=== PATIENT | female | born 1970 | race American Indian/Alaskan Native ===

== ENCOUNTER 2017-05-13 11:02 | Emergency (ER) | payer BC, OTHER ==
[2017-05-13 11:15] VITALS: BP 133/101
[2017-05-13] MEDS ORDERED: Sodium Chloride 0.9% 10 ML Syringe FLUSH PRN (11:26)
[2017-05-13] MEDS ORDERED: Sodium Chloride 0.9% 1,000 ML IV ONE ×2 (11:26→13:00)
[2017-05-13] MEDS ORDERED: Ondansetron 4 MG/2 ML SDV IV ONE (11:26)
[2017-05-13] MEDS ORDERED: diphenhydrAMINE 50 MG/ML SDV IVPUSH ONE (11:26)
--- NOTE | 2017-05-13 11:33 | EDM.PDOC ---
ED HPI GENERAL MEDICAL PROBLEM - General Chief Complaint: Gastrointestinal Problem Stated Complaint: [id number] FOOD POISONING Time Seen by Provider: 05/13/17 11:26 Source of Information: Reports: Patient History Limitations: Reports: No Limitations - History of Present Illness INITIAL COMMENTS - FREE TEXT/NARRATIVE: Patient comes emergency department today with complaints of generalized mild abdominal cramping primarily nausea and vomiting. Patient woke approximately 6: 00 this morning as she was vomiting in her bed. She has vomited 5-6 times since that time. She has had multiple bouts of diarrhea since then. She denies any fever but does complain of chills. She did eat at a restaurant yesterday and had a salad and wondered if that's not what causing this as it tasted funny. She has not urinated this morning. She has not traveled outside of the local region recently. She has not been on any antibiotics recently. She denies any chest pain shortness of breath. She denies any hematuria dysuria or urinary frequency. She denies any flank pain. She denies possibility of being as she has a tubal ligation. She actually complains of decreased urinary output today. She does complain of lightheadedness when she stands up. No headache or vision changes. No vertigo type symptoms. Epigastric Pain Score (Numeric/FACES): 8 - Related Data Allergies Allergy/AdvReac Type Severity Reaction Status Date / Time Sulfa (Sulfonamide Allergy Rash Verified 05/13/17 11:12 Antibiotics) Home Meds: Home Meds Aspirin [[place] Chewable] 81 mg PO DAILY 03/04/14 [History] Lisinopril 10 mg PO DAILY 03/04/14 [History] Metoprolol Succinate 50 mg PO DAILY 03/04/14 [History] Ferrous Sulfate, Dried [Iron] 65 mg PO DAILY 05/13/17 [History] Social & Family History - Tobacco Use Smoking Status *Q: Never Smoker Second Hand Smoke Exposure: No - Alcohol Use Days Per Week of Alcohol Use: 0 - Recreational Drug Use Recreational Drug Use: No ED ROS GENERAL - Review of Systems Review Of Systems: ROS reveals no pertinent complaints other than HPI. ED EXAM, GI/ABD - Physical Exam Exam: See Below Exam Limited By: No Limitations General Appearance: Alert, WD/WN Ears: Normal External Exam, Normal TMs Nose: Normal Inspection, Normal Mucosa Throat/Mouth: Normal Inspection, Normal Teeth, Normal Oropharynx (Otherwise with dry mucous membranes.), Perioral Cyanosis Head: Atraumatic Neck: Normal Inspection, Supple, Non-Tender Respiratory/Chest: No Respiratory Distress, Lungs Clear, Normal Breath Sounds, No Accessory Muscle Use Cardiovascular: Normal Peripheral Pulses, Regular Rate, Rhythm GI/Abdominal: Soft, No Organomegaly, No Distention, No Abnormal Bruit, Hyperactive Bowel Sounds, Tenderness (Very Mild generalized tenderness throughout.). No: Guarding, Rebound, Rigidity, McBurney's Sign, Psoas Sign, Rovsing's Sign, Patiño's Sign, Aortic Bruit (Female) Exam: Deferred Rectal (Female) Exam: Deferred Back Exam: Normal Inspection. No: CVA Tenderness (L), CVA Tenderness (R) Extremities: Normal Inspection, Normal Range of Motion, Normal Capillary Refill Neurological: Alert, Oriented Psychiatric: Normal Affect, Normal Mood Skin Exam: Dry, Intact, Cool, Pallor Lymphatic: No Adenopathy Course - Vital Signs Last Recorded V/S: Last Vital Signs Temp 36.1 C 05/13/17 11:14 Pulse 95 05/13/17 11:14 Resp 16 05/13/17 11:14 BP 133/101 H 05/13/17 11:14 Pulse Ox 100 05/13/17 11:14 - Orders/Labs/Meds Orders: Active Orders 24 hr Category Date Time Status Peripheral IV Care [RC] . DIRECTED Care 05/13/17 11:26 Active Peripheral IV Insertion Adult [OM.PC] Stat Oth 05/13/17 11:26 Ordered Labs: Laboratory Tests 05/13/17 05/13/17 05/13/17 Range/Units 11:31 11:40 11:40 WBC 18.9 H (5.0-10.0) 10^3/uL RBC 5.04 (4.2-5.4) 10^6/uL Hgb 15.9 (12.0-16.0) g/dL Hct 46.7 (37.0-47.0) % MCV 92.7 (80-100) fL MCH 31.5 (27.0-34.0) pg MCHC 34.0 (33.0-35.0) g/dL Plt Count 281 (150-450) 10^3/uL Neut % (Auto) 90.8 H (42.2-75.2) % Lymph % (Auto) 6.4 L (20.5-50.1) % Mcculloch % (Auto) 2.5 (2-8) % Eos % (Auto) 0.1 L (1.0-3.0) % Baso % (Auto) 0.2 (0.0-1.0) % Sodium 136 (135-145) mmol/L Potassium 4.1 (3.6-5.0) mmol/L Chloride 102 (101-111) mmol/L Carbon Dioxide 22.0 (21.0-31.0) mmol/L Anion Gap 16.1 BUN 17 (7-18) mg/dL Creatinine 1.1 (0.6-1.3) mg/dL Est Cr Clr Drug Dosing 58.73 mL/min Estimated GFR (MDRD) 54 BUN/Creatinine Ratio 15.45 Glucose 146 H (74-105) mg/dL Calcium 9.7 (8.4-10.2) mg/dl Total Bilirubin 1.4 H (0.2-1.0) mg/dL AST 24 (10-42) IU/L ALT 29 (10-60) IU/L Alkaline Phosphatase 52 (42-121) IU/L Total Protein 8.2 (6.7-8.2) g/dl Albumin 4.7 (3.2-5.5) g/dl Globulin 3.5 Albumin/Globulin Ratio 1.34 Urine Color Dark yellow (YELLOW) Urine Appearance Cloudy (CLEAR) Urine pH 5.5 (5.0-9.0) Ur Specific [place] >= 1.030 (1.005-1.030) Urine Protein >=300 H (NEGATIVE) Urine Glucose (UA) Negative (NEGATIVE) Urine Ketones 40 H (NEGATIVE) Urine Occult Blood Negative (NEGATIVE) Urine Nitrite Negative (NEGATIVE) Urine Bilirubin Large H (NEGATIVE) Urine Urobilinogen 1.0 (0.2-1.0) mg/dL Ur Leukocyte Esterase Negative (NEGATIVE) Urine RBC 0-5 /HPF Urine WBC 5-10 H (0-5/HPF) /HPF Ur Epithelial Cells Many H /HPF Urine Bacteria Many H (0-FEW/HPF) /HPF Hyaline Casts Few H /LPF Fine Granular Casts Few H (0/LPF) /LPF Urine Mucus Moderate H /LPF Vital Signs 05/13/17 11:14 Temperature [ 36.1 C Temporal] Pulse, 95 Peripheral [ Pulse Oximetry] Respiratory 16 Rate Blood Pressure 133/101 H [Left Upper Arm ] O2 Sat by Pulse 100 Oximetry Meds: Medications Discontinued Medications Generic Name Dose Route Start Last Admin Trade Name Freq PRN Reason Stop Dose Admin Diphenhydramine HCl 25 mg 05/13/17 11:26 05/13/17 11:45 Benadryl IVPUSH 05/13/17 11:27 25 mg ONETIME ONE Administration Sodium Chloride 1,000 mls @ 999 mls/hr 05/13/17 11:26 05/13/17 11:41 Normal Saline IV 05/13/17 12:26 999 mls/hr .BOLUS ONE Administration Sodium Chloride 1,000 mls @ 999 mls/hr 05/13/17 13:00 05/13/17 13:00 Normal Saline IV 05/13/17 14:00 999 mls/hr .BOLUS ONE Administration Ondansetron HCl 4 mg 05/13/17 11:26 05/13/17 11:44 Zofran IV 05/13/17 11:27 4 mg ONETIME ONE Administration Sodium Chloride 10 ml 05/13/17 11:26 05/13/17 11:50 Saline Flush FLUSH 10 ml ASDIRECTED PRN Administration Keep Vein Open - Re-Assessments/Exams Free Text/Narrative Re-Assessment/Exam: 05/13/17 15:14 Nausea and vomiting resolved and abdominal cramping was almost completely resolved. Her skin is pink warm and dry now. She received 2 L of fluid and states that she feels much better. She was able to void on her own. We'll treat her conservatively for gastroenteritis. Departure - Departure Time of Disposition: 13:50 Disposition: Home, Self-Care 01 Clinical Impression: Gastroenteritis, Dehydration - Discharge Information Instructions: Dehydration, Elderly, [id number], Viral Gastroenteritis, Adult , [id number] Forms: ED Department Discharge Additional Instructions: Drink lots of fluids over the next couple of days to include electrolyte- containing material such as Gatorade and/or Powerade. Slowly advance her diet starting with clear liquids. Stay away from dairy products until nausea and vomiting and diarrhea has completely resolved. Zofran 1 tablet every 6 hours as needed for nausea or vomiting. May try [id number] antidiarrheals. Return to emergency department if new or worsening symptoms. Recheck with primary care provider in the next 4-6 days if not improving sooner if worse. - My Orders Last 24 Hours: My Active Orders 05/13/17 11:26 Peripheral IV Care [RC] . DIRECTED Peripheral IV Insertion Adult [OM.PC] Stat - Assessment/Plan Last 24 Hours: My Active Orders 05/13/17 11:26 Peripheral IV Care [RC] . DIRECTED Peripheral IV Insertion Adult [OM.PC] Stat Assessment:: gastroenteritis. dehydration. Plan: Drink lots of fluids over the next couple of days to include electrolyte- containing material such as Gatorade and/or Powerade. Slowly advance her diet starting with clear liquids. Stay away from dairy products until nausea and vomiting and diarrhea has completely resolved. Zofran 1 tablet every 6 hours as needed for nausea or vomiting. May try [id number] antidiarrheals. Return to emergency department if new or worsening symptoms. Recheck with primary care provider in the next 4-6 days if not improving sooner if worse.
== END 2017-05-13 14:08 | disposition home or self-care (01) ==
LOC: DL.ED 11:02
DX: K52.9 Noninfective gastroenteritis and colitis, unspecified (principal); E86.0 Dehydration; Z88.2 Allergy status to sulfonamides; Z79.82 Long term (current) use of aspirin; Z79.899 Other long term (current) drug therapy
CPT/HCPCS: 36415; 80053; 81001; 85025; 96361; 96374; 96375; 99283; J1200; J2405; J7030; J7050